=== PATIENT | male | born 1950 | race Caucasian/White ===

== ENCOUNTER 2018-08-22 07:41 | Inpatient (IN) | payer MEDICAID, OTHER ==
[~2018-08-22] VITALS: Ht 170.2 cm; Wt 67.5 kg
[2018-08-22] MEDS ORDERED: ONDANSETRON 4 MG INJ IV STA (07:59)
[2018-08-22] MEDS ORDERED: CEFTRIAXONE 1 GM/50 ML (PMX) 50 ML IVPB STA (07:59)
[2018-08-22] MEDS ORDERED: ACETAMINOPHEN 325 MG TAB PO STA (07:59)
[2018-08-22] MEDS ORDERED: SODIUM CHLORIDE 0.9% 1L BAG IV* STA (07:59)
[2018-08-22] MEDS ORDERED: MTF1000T PO (08:05)
[2018-08-22] MEDS ORDERED: ASPIRIN 81 MG TAB PO ONE (09:30)
[2018-08-22] MEDS ORDERED: ACETAMINOPHEN 325 MG TAB PO PRN ×2 (11:30→14:00)
[2018-08-22] MEDS ORDERED: ONDANSETRON 4 MG INJ IV PRN ×2 (11:30→14:00)
--- NOTE | 2018-08-22 11:30 | ERD ---
ER Documentation Chief Complaint Chief Complaint Complains of feeling Dizziy x 2 days HPI Patient is a 67-year-old male with hypertension and diabetes who presents saying "I started feeling bad". He said that it started yesterday. He had 3 episodes of vomiting last night. He felt cold. The daughter found him on the floor this morning and could not get him off the floor. He has diffuse weakness. He has no cough. He does have sore throat. He has had no treatment as of yet. There are no sick contacts at home. The patient does not know the name of his primary doctor. ROS All systems reviewed and are negative except as per history of present illness. Medications Home Meds Reported Medications Metformin* (Glucophage*) 1,000 Mg Tablet, 1000 MG PO BID, #60 TAB 08/22/18 Allergies Allergies: Coded Allergies: No Known Allergy (Unverified , 08/22/18) PMhx/Soc Medical and Surgical Hx: pt denies Medical Hx, pt denies Surgical Hx Hx Alcohol Use: No Hx Substance Use: No Hx Tobacco Use: No Smoking Status: Never smoker FmHx Family History: diabetes Physical Exam Vitals Vital Signs Date Temp Pulse Resp B/P (MAP) Pulse Ox O2 O2 Flow FiO2 Time Delivery Rate 08/22/18 99.8 104 10:50 08/22/18 102.8 08:36 08/22/18 102.8 122 08:15 08/22/18 102.5 133 20 129/84 95 07:46 (99) Physical Exam Const: Moderate distress Head: Atraumatic Eyes: Normal Conjunctiva ENT: Normal External Ears, Nose and Mouth. Neck: Full range of motion. No meningismus. Resp: Clear to auscultation bilaterally Cardio: Tachycardic rate without murmur Abd: Soft, non tender, non distended. Normal bowel sounds Skin: Pale skin Back: No midline or flank tenderness Ext: No cyanosis, or edema Neur: Awake and alert Psych: Normal Mood and Affect Result Diagram: 08/22/18 0818 08/22/1818 Results 24 hrs Laboratory Tests Test 08/22/18 08:17 08/22/18 08:18 08/22/18 08:23 08/22/18 10:05 Prothrombin Time 13.7 Sec Prothrombin Time 1.1 Ratio INR International 1.04 Normalized Ratio Activated 27.5 Sec Partial Thromboplas t Time White Blood Count 15.4 10^3/ul Red Blood Count 4.30 10^6/ul Hemoglobin 12.7 g/dl Hematocrit 37.4 % Mean Corpuscular 87.0 fl Volume Mean Corpuscular 29.5 pg Hemoglobin Mean Corpuscular 34.0 g/dl Hemoglobin Concent Red Cell 12.4 % Distribution Width Platelet Count 294 10^3/UL Mean Platelet 10.9 fl Volume Immature 0.800 % Granulocytes % Neutrophils % 84.8 % Lymphocytes % 5.5 % Monocytes % 8.7 % Eosinophils % 0.0 % Basophils % 0.2 % Nucleated Red Blood 0.0 /100WBC Cells % Immature 0.130 10^3/ul Granulocytes # Neutrophils # 13.1 10^3/ul Lymphocytes # 0.8 10^3/ul Monocytes # 1.3 10^3/ul Eosinophils # 0.0 10^3/ul Basophils # 0.0 10^3/ul Nucleated Red Blood 0.0 10^3/ul Cells # Sodium Level 138 mmol/L Potassium Level 4.3 mmol/L Chloride Level 97 mmol/L Carbon Dioxide 26 mmol/L Level Anion Gap 15 Blood Urea Nitrogen 17 mg/dl Creatinine 1.05 mg/dl Est Glomerular > 60 mL/min Filtrat Rate mL/min Glucose Level 238 mg/dl Calcium Level 9.3 mg/dl Total Bilirubin 0.2 mg/dl Direct Bilirubin 0.00 mg/dl Indirect Bilirubin 0.2 mg/dl Aspartate Amino 23 IU/L Transf (AST/SGOT) Alanine 16 IU/L Aminotransferase (A LT/SGPT) Alkaline 65 IU/L Phosphatase Troponin I 0.239 ng/ml Total Protein 8.0 g/dl Albumin 4.3 g/dl Globulin 3.70 g/dl Albumin/Globulin 1.16 Ratio POC Venous Lactate 1.4 mmol/L Urine Color YELLOW Urine Clarity CLEAR Urine pH 7.0 Urine Specific 1.015 [place] Urine Ketones 1+ mg/dL Urine Nitrite NEGATIVE mg/dL Urine Bilirubin NEGATIVE mg/dL Urine Urobilinogen 1+ mg/dL Urine Leukocyte NEGATIVE Aden/ul Esterase Urine Microscopic 3 /HPF RBC Urine Microscopic 10 /HPF WBC Urine Hemoglobin NEGATIVE mg/dL Urine Glucose 1+ mg/dL Urine Total Protein 2+ mg/dl Current Medications Medications Dose Sig/Kimberlee Start Time Status Last (Trade) Ordered Route PRN Stop Time Admin Dose Reason Admin Sodium 2,100 ml BOLUS OVER 2 08/22/18 DC 08/22/18 Chloride HOURS STAT 07:59 08/22/18 08:32 (NS) IV* 08:01 650 mg ONCE STAT 08/22/18 DC 08/22/18 Acetaminophen PO 07:59 08/22/18 08:36 (Tylenol 08:01 Tab) Ondansetron 4 mg ONCE STAT 08/22/18 DC HCl (Zofran IV 07:59 08/22/18 Inj) 08:01 Ceftriaxone 50 ml @ ONCE STAT 08/22/18 DC 08/22/18 Sodium 100 mls/hr IVPB 07:59 08/22/18 09:18 08:28 Aspirin 162 mg ONCE ONCE 08/22/18 DC 08/22/18 (Aspirin) PO 09:30 08/22/18 10:09 09:31 Ondansetron 4 mg ER BRIDGE 08/22/18 HCl (Zofran PRN IV 11:30 08/23/18 Inj) NAUSEA AND/OR 11:29 VOMITING 650 mg ER BRIDGE 08/22/18 Acetaminophen PRN PO MILD 11:30 08/23/18 (Tylenol PAIN(1-3)OR 11:29 Tab) ELEVATED TEMP Procedures/MDM EKG read by me: Rate/Rhythm: Sinus tachycardia at a rate of 110 Intervals: Normal Impression: Tachycardia without ischemia X-ray shows no pneumonia per radiology. Flu swab negative. Sepsis Documentation: Patient's infectious symptoms have not stabilized and the patient is at risk of rapid decompensation. The patient will be admitted for careful hydration, antibiotic therapy, and infectious source control. SEVERE SEPSIS CRITERIA: Infectious source: Cystitis End organ damage indicated by: Positive troponin SEPSIS MANAGEMENT Time of recognition of sepsis: 8:18 AM. Time of recognition of severe sepsis: 8:18 AM. Time of recognition of septic shock: No septic shock at this time. 3 HOUR BUNDLE Blood cultures x 2 before broad-spectrum antibiotics: Yes 30 ml/kg NS bolus completed Initial lactate normal Repeat lactate pending SEPTIC SHOCK ASSESSMENT: No lactic acid > 4.0 No persistent hypotension (SBP < 90 or 40 mmHg drop, MAP < 65) despite 30 mL/kg IV fluid bolus VOLUME REASSESSMENT FOR SEPTIC SHOCK: No septic shock at this time PERSISTENT HYPOTENSION TREATMENT: Comfort care no Central line not Required Vasopressor started not required I considered further perfusion assessment with CVP measurement, SCVO2, bedside ultrasound volume assessment, passive leg raise, trial of further fluid bolus. And proceeded with 30 ml/kg fluid bolus of NSS, broad spectrum antibiotics, and admission. The patient was also found to have a positive troponin and was given aspirin. I believe this is more related to cardiac stress from sepsis. The patient will be admitted to the Dr. Nixon from [facility]. He is unstable for transfer at this time. CRITICAL CARE Critical care time 35 minutes Emergent fluid management while maintaining close respiratory support. Provision of immediate and broad-spectrum antibiotic therapy. Simultaneous assessment for possible sources in order to direct targeted therapy. Consideration for invasive and chemical support to prevent cardiopulmonary collapse. Critical care time is independent of procedures performed. Departure Diagnosis: Primary Impression: Severe sepsis Additional Impressions: Fever Fever type: unspecified Qualified Codes: R50.9 - Fever, unspecified NSTEMI (non-ST elevated myocardial infarction) Condition: Serious GIULIA ORTIZ MD Aug 22, 2018 11:30
[2018-08-22 13:13] VITALS: Ht 170.2 cm; Wt 67.5 kg
[2018-08-22 13:14] VITALS: BP 149/81; PULSE 95; RESP 18
[2018-08-22 13:20] VITALS: PULSE 95
[2018-08-22] MEDS ORDERED: GLUCOSE GEL 15 GRAM TUBE PO PRN ×2 (14:00)
[2018-08-22] MEDS ORDERED: DEXTROSE 50% 50 ML SYRINGE IV PRN ×2 (14:00)
[2018-08-22] MEDS ORDERED: NACL 0.9% 3 ML SYG IV SCH (14:00)
[2018-08-22] MEDS ORDERED: GLUCOSE GEL 15 GRAM TUBE BUCCAL PRN (14:00)
[2018-08-22] MEDS ORDERED: DOCUSATE SODIUM 100 MG CAP PO PRN (14:00)
[2018-08-22] MEDS ORDERED: GLUCAGON 1 MG INJ IM PRN (14:00)
[2018-08-22] MEDS: SOD CHLORIDE 0.9% 1,000 ML IV SCH ×2 (14:27→23:38)
[2018-08-22] MEDS: HEPARIN 5,000 UNIT/1 ML VIAL SC SCH ×2 (14:41→21:24)
[2018-08-22 15:19] VITALS: BP 156/80; PULSE 108; RESP 20
--- NOTE | 2018-08-22 15:57 | RADRPT ---
Echocardiogram Report Patient Name: ZHAO MEYERS Gender: Male Date: 1950 Study Date: 22-Aug-2018 Intermediate Card Tender: Alia Olivo [facility] Location: [id number] Ref. Physician: LUIS FERNANDO JARVIS Quality: Adequate Procedures: Transthoracic echocardiogram with complete 2D, M-Mode, and doppler examination. Indications: Elevated troponin. 2D/M Mode Doppler Measurement Value Normal Ranges Measurement Value Normal Ranges LVIDd 2D 4.5 3.5 - 5.6 cm AV Peak Karel 1.2 m/sec LVIDs 2D 2.8 2.1 - 4.1 cm AV Peak PG 6.0 mmHg FS 2D 37.5 % LVOT Peak Karel 0.9 m/sec LVPWd 2D 1.0 0.6 - 1.1 cm LVOT Peak PG 4.0 mmHg IVSd 2D 1.1 0.6 - 1.1 cm MV E Peak Karel 0.9 m/sec IVS/LVPW 2D 1.0 MV A Peak Karel 1.1 m/sec AoR Diam 2D 3.1 2.0 - 3.7 cm MV E/A 0.8 LA/Ao 2D 1 0 - 1 MV Decel Time 99 msec EDV 2D 91.7 cm3 MV E/A 0.8 ESV 2D 22.4 cm3 TR Peak Karel 2.6 m/sec LA Dimen 2D 3.3 2.3 - 4.0 cm TR Peak PG 27.0 mmHg RVSP 35.0 mmHg RA Pressure 8.0 Findings Left Ventricle: Normal left ventricular systolic function. Normal left ventricular cavity size. Mild concentric left ventricular hypertrophy. Ejection fraction is visually estimated at 60 %. Tissue Doppler/Mitral Doppler indices are consistent with impaired relaxation (Stage I diastolic dysfunction). Right Ventricle: Normal right ventricular size. Normal right ventricular systolic function. Left Atrium: The left atrium is normal in size. Right Atrium: The right atrium is normal in size. Mitral Valve: Normal appearance of the mitral valve. Mild mitral annular calcification. Trace mitral regurgitation. Aortic Valve: Normal appearance of the aortic valve. No significant aortic stenosis or insufficiency. Tricuspid Valve: Normal appearance of the tricuspid valve. Estimated peak PA systolic pressure 35 mmHg. There is mild tricuspid regurgitation. Pulmonic Valve: Normal pulmonic valve appearance. Pericardium: Normal pericardium with no significant pericardial effusion. Aorta: Normal aortic root. IVC: Dilated IVC with respiratory collapse consistent with elevated right atrial pressure. Conclusions Normal left ventricular systolic function. Normal left ventricular cavity size. Mild concentric left ventricular hypertrophy. Ejection fraction is visually estimated at 60 %. Tissue Doppler/Mitral Doppler indices are consistent with impaired relaxation (Stage I diastolic dysfunction). Normal right ventricular size. Normal right ventricular systolic function. The left atrium is normal in size. The right atrium is normal in size. Normal appearance of the tricuspid valve. Estimated peak PA systolic pressure 35 mmHg. There is mild tricuspid regurgitation. No significant valvular stenosis or regurgitation seen of remaining visualized valves. Normal pericardium with no significant pericardial effusion. Electronically Signed By: Evan Neves 22-Aug-2018 15:57:27 -0800 Patient Name: ZHAO MEYERS Study Date: 22-Aug-2018 [id number]
[2018-08-22 16:21] VITALS: PULSE 101
[2018-08-22] MEDS: ASPIRIN 81 MG TAB PO SCH (16:52)
--- NOTE | 2018-08-22 16:58 | CONS ---
Date/Time of Note Date/Time of Note DATE: 08/22/18 TIME: 16:52 Assessment/Plan Assessment/Plan Assessment/Plan SIRS with probable sepsis Mildly elevated troponin Preserved ejection fraction Diabetes -Patient presents with symptoms of not feeling well with nausea and vomiting with likely sepsis. Troponins mildly elevated. Patient denies any chest pain, shortness of breath or palpitations. ECG with no significant ischemic abnormalities, echocardiogram with preserved ejection fraction. Would continue sepsis management. Patient started on aspirin and statin therapy at the current time. Follow serial cardiac enzymes. Result Diagram: 08/22/18 0818 08/22/18 0818 Results 24hrs Laboratory Tests Test 08/22/18 08:17 08/22/18 08:18 08/22/18 08:23 08/22/18 10:05 Prothrombin Time 13.7 Prothrombin Time Ratio 1.1 INR International 1.04 Normalized Ratio Activated 27.5 Partial Thromboplast Time White Blood Count 15.4 H Red Blood Count 4.30 L Hemoglobin 12.7 L Hematocrit 37.4 L Mean Corpuscular Volume 87.0 Mean Corpuscular 29.5 Hemoglobin Mean Corpuscular 34.0 Hemoglobin Concent Red Cell Distribution 12.4 Width Platelet Count 294 Mean Platelet Volume 10.9 H Immature Granulocytes % 0.800 H Neutrophils % 84.8 H Lymphocytes % 5.5 L Monocytes % 8.7 Eosinophils % 0.0 Basophils % 0.2 Nucleated Red Blood 0.0 Cells % Immature Granulocytes # 0.130 H Neutrophils # 13.1 H Lymphocytes # 0.8 Monocytes # 1.3 H Eosinophils # 0.0 Basophils # 0.0 Nucleated Red Blood 0.0 Cells # Sodium Level 138 Potassium Level 4.3 Chloride Level 97 Carbon Dioxide Level 26 Anion Gap 15 H Blood Urea Nitrogen 17 Creatinine 1.05 Est Glomerular Filtrat > 60 Rate mL/min Glucose Level 238 H Calcium Level 9.3 Total Bilirubin 0.2 Direct Bilirubin 0.00 Indirect Bilirubin 0.2 Aspartate Amino 23 Transf (AST/SGOT) Alanine 16 Aminotransferase (ALT/SG PT) Alkaline Phosphatase 65 Troponin I 0.239 *H Total Protein 8.0 Albumin 4.3 Globulin 3.70 H Albumin/Globulin Ratio 1.16 POC Venous Lactate 1.4 Urine Color YELLOW Urine Clarity CLEAR Urine pH 7.0 Urine Specific [place] 1.015 Urine Ketones 1+ H Urine Nitrite NEGATIVE Urine Bilirubin NEGATIVE Urine Urobilinogen 1+ H Urine Leukocyte Esterase NEGATIVE Urine Microscopic RBC 3 Urine Microscopic WBC 10 H Urine Hemoglobin NEGATIVE Urine Glucose 1+ H Urine Total Protein 2+ H Test 08/22/18 10:56 08/22/18 14:10 08/22/18 16:29 Lactic Acid Level 1.1 Creatine Kinase 188 Creatine Kinase Index 1.7 Creatinine Kinase MB 3.27 H (Mass) Troponin I 0.563 *H Bedside Glucose 167 Consultation Date/Type/Reason Admit Date/Time Aug 22, 2018 at 11:17 Type of Consult cv Reason for Consultation Elevated troponin Hx of Present Illness This is a 67-year-old male with no significant past medical history who presents with overall not feeling well with nausea and vomiting the day prior to admi ssion. No chest pain or shortness of breath. No dizziness, lightheadedness or palpitations. On routine laboratory studies, patient found to have elevated troponin and for this reason cardiology consultation was requested. Currently feeling much better. Denies any chest pain, shortness of breath or palpitations at the current time. 12 point review of systems was performed with all pertinent positives and negatives mentioned above and all else is negative Past Medical History Medical History: diabetes Medications Current Medications Sodium Chloride 1,000 ml @ 100 mls/hr Q10H IV Last administered on 08/22/18at 14:27; Admin Dose 100 MLS/HR; Start 08/22/18 at 13:31 IV Flush (NS 3 ml) 3 ml PER PROTOCOL IV ; Start 08/22/18 at 14:00 Ondansetron HCl (Zofran Inj) 4 mg Q6H PRN IV NAUSEA AND/OR VOMITING; Start 08/22/18 at 14:00 Acetaminophen (Tylenol Tab) 650 mg Q6H PRN PO PAIN LEVEL 1-3 OR FEVER; Start 08/22/18 at 14:00 Docusate Sodium (Colace) 100 mg Q12H PRN PO CONSTIPATION; Start 08/22/18 at 14:00 Famotidine (Pepcid) 20 mg Q12 PO ; Start 08/22/18 at 21:00 Heparin Sodium (Porcine) (Heparin (5000 Units/1ml)) 5,000 unit Q8 SC Last administered on 08/22/18at 14:41; Admin Dose 5,000 UNIT; Start 08/22/18 at 14:00 Ceftriaxone Sodium 50 ml @ 100 mls/hr Q24H IVPB ; Start 08/23/18 at 09:00 Diagnostic Test (Pha) (Accu-Chek) 1 ea 02 XX ; Start 08/23/18 at 02:00 Insulin Glargine (Lantus) 10 units DAILY@2100 SC ; Start 08/22/18 at 21:00 Insulin Aspart (Novolog Insulin Pen) NOVOLOG *MODERATE* ALGORITHM WITH MEALS BEDTIME SC ; Start 08/22/18 at 17:55 Miscellaneous Information 1 ea NOTE XX ; Start 08/22/18 at 14:00 Glucose (Glutose) 15 gm Q15M PRN PO DECREASED GLUCOSE; Start 08/22/18 at 14:00 Glucose (Glutose) 22.5 gm Q15M PRN PO DECREASED GLUCOSE; Start 08/22/18 at 14:00 Dextrose (D50w Syringe) 25 ml Q15M PRN IV DECREASED GLUCOSE; Start 08/22/18 at 14:00 Dextrose (D50w Syringe) 50 ml Q15M PRN IV DECREASED GLUCOSE; Start 08/22/18 at 14:00 Glucagon (Glucagen) 1 mg Q15M PRN IM DECREASED GLUCOSE; Start 08/22/18 at 14:00 Glucose (Glutose) 15 gm Q15M PRN BUCCAL DECREASED GLUCOSE; Start 08/22/18 at 14:00 Aspirin (Aspirin) 81 mg DAILY PO ; Start 08/22/18 at 17:00 Atorvastatin Calcium (Lipitor) 20 mg HS PO ; Start 08/22/18 at 21:00 Penicillin V Potassium (Penicillin V K) 500 mg Q8 PO ; Start 08/22/18 at 22:00 Allergies: Coded Allergies: No Known Allergy (Unverified , 08/22/18) Past Surgical History Past Surgical Hx: other (Ophthalmologic surgery) Family History Significant Family History: no pertinent family hx Social History Smoking Status: Never smoker Exam/Review of Systems Vital Signs Vitals Vital Signs Date Temp Pulse Resp B/P (MAP) Pulse Ox O2 O2 Flow FiO2 Time Delivery Rate 08/22/18 101 16:21 08/22/18 99.3 20 156/80 91 Room Air 15:19 (105) Exam No apparent distress, multiple family members at bedside Constitutional: alert, oriented Head: normocephalic Respiratory: other (Coarse breath sounds bilaterally, no wheezing) Cardiovascular: regular rate and rhythm, other (S1-S2) Gastrointestinal: soft, non-tender, bowel sounds Extremities: other (No significant edema) Medications Medications Current Medications Sodium Chloride 1,000 ml @ 100 mls/hr Q10H IV Last administered on 08/22/18at 14:27; Admin Dose 100 MLS/HR; Start 08/22/18 at 13:31 IV Flush (NS 3 ml) 3 ml PER PROTOCOL IV ; Start 08/22/18 at 14:00 Ondansetron HCl (Zofran Inj) 4 mg Q6H PRN IV NAUSEA AND/OR VOMITING; Start 08/22/18 at 14:00 Acetaminophen (Tylenol Tab) 650 mg Q6H PRN PO PAIN LEVEL 1-3 OR FEVER; Start 08/22/18 at 14:00 Docusate Sodium (Colace) 100 mg Q12H PRN PO CONSTIPATION; Start 08/22/18 at 14:00 Famotidine (Pepcid) 20 mg Q12 PO ; Start 08/22/18 at 21:00 Heparin Sodium (Porcine) (Heparin (5000 Units/1ml)) 5,000 unit Q8 SC Last administered on 08/22/18at 14:41; Admin Dose 5,000 UNIT; Start 08/22/18 at 14:00 Ceftriaxone Sodium 50 ml @ 100 mls/hr Q24H IVPB ; Start 08/23/18 at 09:00 Diagnostic Test (Pha) (Accu-Chek) 1 ea 02 XX ; Start 08/23/18 at 02:00 Insulin Glargine (Lantus) 10 units DAILY@2100 SC ; Start 08/22/18 at 21:00 Insulin Aspart (Novolog Insulin Pen) NOVOLOG *MODERATE* ALGORITHM WITH MEALS BEDTIME SC ; Start 08/22/18 at 17:55 Miscellaneous Information 1 ea NOTE XX ; Start 08/22/18 at 14:00 Glucose (Glutose) 15 gm Q15M PRN PO DECREASED GLUCOSE; Start 08/22/18 at 14:00 Glucose (Glutose) 22.5 gm Q15M PRN PO DECREASED GLUCOSE; Start 08/22/18 at 14:00 Dextrose (D50w Syringe) 25 ml Q15M PRN IV DECREASED GLUCOSE; Start 08/22/18 at 14:00 Dextrose (D50w Syringe) 50 ml Q15M PRN IV DECREASED GLUCOSE; Start 08/22/18 at 14:00 Glucagon (Glucagen) 1 mg Q15M PRN IM DECREASED GLUCOSE; Start 08/22/18 at 14:00 Glucose (Glutose) 15 gm Q15M PRN BUCCAL DECREASED GLUCOSE; Start 08/22/18 at 14:00 Aspirin (Aspirin) 81 mg DAILY PO ; Start 08/22/18 at 17:00 Atorvastatin Calcium (Lipitor) 20 mg HS PO ; Start 08/22/18 at 21:00 Penicillin V Potassium (Penicillin V K) 500 mg Q8 PO ; Start 08/22/18 at 22:00 Imaging Imaging ECG demonstrates sinus tachycardia at 119 bpm, QRS 94 ms, no significant ischemic ST abnormalities Evan Neves DO Aug 22, 2018 16:58
[2018-08-22] MEDS: INSULIN ASPART [NOVOLOG] 3 ML PEN SC SCH ×2 (17:07→21:00)
--- NOTE | 2018-08-22 17:15 | HP ---
Date/Time of Note Date/Time of Note DATE: 08/22/18 TIME: 17:15 Assessment/Plan VTE Prophylaxis Pharmacological prophylaxis: heparin Lines/Catheters IV C[facility]ter Type (from [facility]): [facility] Assessment/Plan Hospital Course 67 m with hx of HTN , DM, BPH s/p prostatic biopsy who presented with severe sepsis with presumed UTI as the source , strep throat is positive. He was found to have elevated troponin without CP (1) Severe sepsis, presumed UTI and positive strep throat, throat blood and urine cultures , Penicillin V for strep throat , Ceftriaxone for possible complicated UTI , (2) Strep throat, Penicillin V PO as above for 10 days (3) NSTEMI (non-ST elevated myocardial infarction), trend troponin , cardiology consultation to Dr Neves PPX: Heparin and Pepcid Problems: (1) Severe sepsis Status: Acute (2) Strep throat (3) NSTEMI (non-ST elevated myocardial infarction) Status: Acute Result Diagram: 08/22/18 0818 08/22/18 0818 Results 24hrs Laboratory Tests Test 08/22/18 08:17 08/22/18 08:18 08/22/18 08:23 08/22/18 10:05 Prothrombin Time 13.7 Prothrombin Time Ratio 1.1 INR International 1.04 Normalized Ratio Activated 27.5 Partial Thromboplast Time White Blood Count 15.4 H Red Blood Count 4.30 L Hemoglobin 12.7 L Hematocrit 37.4 L Mean Corpuscular Volume 87.0 Mean Corpuscular 29.5 Hemoglobin Mean Corpuscular 34.0 Hemoglobin Concent Red Cell Distribution 12.4 Width Platelet Count 294 Mean Platelet Volume 10.9 H Immature Granulocytes % 0.800 H Neutrophils % 84.8 H Lymphocytes % 5.5 L Monocytes % 8.7 Eosinophils % 0.0 Basophils % 0.2 Nucleated Red Blood 0.0 Cells % Immature Granulocytes # 0.130 H Neutrophils # 13.1 H Lymphocytes # 0.8 Monocytes # 1.3 H Eosinophils # 0.0 Basophils # 0.0 Nucleated Red Blood 0.0 Cells # Sodium Level 138 Potassium Level 4.3 Chloride Level 97 Carbon Dioxide Level 26 Anion Gap 15 H Blood Urea Nitrogen 17 Creatinine 1.05 Est Glomerular Filtrat > 60 Rate mL/min Glucose Level 238 H Calcium Level 9.3 Total Bilirubin 0.2 Direct Bilirubin 0.00 Indirect Bilirubin 0.2 Aspartate Amino 23 Transf (AST/SGOT) Alanine 16 Aminotransferase (ALT/SG PT) Alkaline Phosphatase 65 Troponin I 0.239 *H Total Protein 8.0 Albumin 4.3 Globulin 3.70 H Albumin/Globulin Ratio 1.16 POC Venous Lactate 1.4 Urine Color YELLOW Urine Clarity CLEAR Urine pH 7.0 Urine Specific [place] 1.015 Urine Ketones 1+ H Urine Nitrite NEGATIVE Urine Bilirubin NEGATIVE Urine Urobilinogen 1+ H Urine Leukocyte Esterase NEGATIVE Urine Microscopic RBC 3 Urine Microscopic WBC 10 H Urine Hemoglobin NEGATIVE Urine Glucose 1+ H Urine Total Protein 2+ H Test 08/22/18 10:56 08/22/18 14:10 08/22/18 16:29 Lactic Acid Level 1.1 Creatine Kinase 188 Creatine Kinase Index 1.7 Creatinine Kinase MB 3.27 H (Mass) Troponin I 0.563 *H Bedside Glucose 167 HPI/ROS Admit Date/Time Admit Date/Time Aug 22, 2018 at 11:17 Hx of Present Illness 67 m with hx of DM, BPH s/p prostatic biopsy who presented to the ED because of two days of not feeling well. The family went out for dinner last night when he was found to be very weak and not able to walk. He vomited after eating . He complains of sore throat and chills . Denies CP, SOB cough,abdominal pain, diarrhea , focal weakness or numbness. He was found to have elevated WBC fever. He was treated for urosepsis by IV ceftriaxone . Troponin was found to be elevated without CP PMH/Family/Social Past Medical History Medical History: diabetes Medications Current Medications Sodium Chloride 1,000 ml @ 100 mls/hr Q10H IV Last administered on 08/22/18at 14:27; Admin Dose 100 MLS/HR; Start 08/22/18 at 13:31 IV Flush (NS 3 ml) 3 ml PER PROTOCOL IV ; Start 08/22/18 at 14:00 Ondansetron HCl (Zofran Inj) 4 mg Q6H PRN IV NAUSEA AND/OR VOMITING; Start 08/22/18 at 14:00 Acetaminophen (Tylenol Tab) 650 mg Q6H PRN PO PAIN LEVEL 1-3 OR FEVER; Start 08/22/18 at 14:00 Docusate Sodium (Colace) 100 mg Q12H PRN PO CONSTIPATION; Start 08/22/18 at 14:00 Famotidine (Pepcid) 20 mg Q12 PO ; Start 08/22/18 at 21:00 Heparin Sodium (Porcine) (Heparin (5000 Units/1ml)) 5,000 unit Q8 SC Last administered on 08/22/18at 14:41; Admin Dose 5,000 UNIT; Start 08/22/18 at 14:00 Ceftriaxone Sodium 50 ml @ 100 mls/hr Q24H IVPB ; Start 08/23/18 at 09:00 Diagnostic Test (Pha) (Accu-Chek) 1 ea 02 XX ; Start 08/23/18 at 02:00 Insulin Glargine (Lantus) 10 units DAILY@2100 SC ; Start 08/22/18 at 21:00 Insulin Aspart (Novolog Insulin Pen) NOVOLOG *MODERATE* ALGORITHM WITH MEALS BEDTIME SC Last administered on 08/22/18at 17:07; Admin Dose 2 UNIT; Start 08/22/18 at 17:55 Miscellaneous Information 1 ea NOTE XX ; Start 08/22/18 at 14:00 Glucose (Glutose) 15 gm Q15M PRN PO DECREASED GLUCOSE; Start 08/22/18 at 14:00 Glucose (Glutose) 22.5 gm Q15M PRN PO DECREASED GLUCOSE; Start 08/22/18 at 14:00 Dextrose (D50w Syringe) 25 ml Q15M PRN IV DECREASED GLUCOSE; Start 08/22/18 at 14:00 Dextrose (D50w Syringe) 50 ml Q15M PRN IV DECREASED GLUCOSE; Start 08/22/18 at 14:00 Glucagon (Glucagen) 1 mg Q15M PRN IM DECREASED GLUCOSE; Start 08/22/18 at 14:00 Glucose (Glutose) 15 gm Q15M PRN BUCCAL DECREASED GLUCOSE; Start 08/22/18 at 14:00 Aspirin (Aspirin) 81 mg DAILY PO Last administered on 08/22/18at 16:52; Admin Dose 81 MG; Start 08/22/18 at 17:00 Atorvastatin Calcium (Lipitor) 20 mg HS PO ; Start 08/22/18 at 21:00 Penicillin V Potassium (Penicillin V K) 500 mg Q8 PO ; Start 08/22/18 at 22:00 Coded Allergies: No Known Allergy (Unverified , 08/22/18) Past Surgical History Past Surgical Hx: other (Ophthalmologic surgery) Family History Significant Family History: no pertinent family hx Social History Smoking Status: Never smoker Exam/Review of Systems Vital Signs Vitals Vital Signs Date Temp Pulse Resp B/P (MAP) Pulse Ox O2 O2 Flow FiO2 Time Delivery Rate 08/22/18 101 16:21 08/22/18 99.3 20 156/80 91 Room Air 15:19 (105) Exam Exam General: In no acute distress , laying in bed , cooperative , pleasant HEENT, EOM intact, KARISHMA bilat, mucosal membranes moist and pink , no oral lesions, tonsils are erythematous and edematous NECK : Supple , not stiffness, , no mass , no carotid bruit Core: S1, S2, NL rhythm tachycardic , no murmur, no rubs, JVD not elevated, no peripheral edema Lungs: in no respiratory distress, not using the accessory muscles of respiration, clear bilaterally with no rales, no crackles , no wheezing , normal inspiratory to expiratory ratio Abdomen, soft, not distended, normal bowel sounds, no tenderness, Extremities without : edema , cyanosis, calf tenderness, brisk capillary refill Neurological: AOx3, normal speech, CN2-12 intact, no motor or sensory deficit, normal gait and normal coordination Psychological: no evidence of depression, anxiety , denies suicidal or homicidal ideation LUIS FERNANDO JARVIS MD Aug 22, 2018 17:15
[2018-08-22 20:00] VITALS: PULSE 93
[2018-08-22 20:36] VITALS: BP 135/72; PULSE 100; RESP 18
[2018-08-22] MEDS ORDERED: ATORVASTATIN 20 MG TAB PO SCH (21:00)
[2018-08-22] MEDS: PENICILLIN V K 250 MG TAB PO SCH (21:06)
[2018-08-22] MEDS: FAMOTIDINE 20 MG TAB PO SCH (21:06)
[2018-08-22] MEDS: INSULIN GLARGINE [LANTus] (100 UNITS/ML) SYG SC SCH (21:25)
[2018-08-22] MEDS: METOPROLOL 25 MG TAB PO SCH (21:48)
[2018-08-23] VITALS (11 sets, daily range): BP systolic 121–150; BP diastolic 64–80; PULSE 69–93; RESP 16–18
[2018-08-23] MEDS: ACCU-CHEK XX SCH (01:43)
[2018-08-23] MEDS: PENICILLIN V K 250 MG TAB PO SCH ×3 (06:02→20:51)
[2018-08-23] MEDS: HEPARIN 5,000 UNIT/1 ML VIAL SC SCH ×3 (06:10→21:07)
[2018-08-23] MEDS: INSULIN ASPART [NOVOLOG] 3 ML PEN SC SCH ×4 (07:53→21:07)
[2018-08-23] MEDS: CEFTRIAXONE 1 GM/50 ML (PMX) 50 ML IVPB SCH (08:39)
[2018-08-23] MEDS: METOPROLOL 25 MG TAB PO SCH (08:40)
[2018-08-23] MEDS: FAMOTIDINE 20 MG TAB PO SCH ×2 (08:40→20:51)
[2018-08-23] MEDS: ASPIRIN 81 MG TAB PO SCH (08:40)
[2018-08-23] MEDS ORDERED: REGADENOSON 0.4 MG/5 ML SYG ONE (12:39)
--- NOTE | 2018-08-23 13:14 | CONS ---
Date/Time of Note Date/Time of Note DATE: 08/23/18 TIME: 13:12 Assessment/Plan Assessment/Plan Assessment/Plan Sepsis Mildly elevated troponin, trending down Preserved ejection fraction Diabetes -Patient continues to deny any chest pain or shortness of breath. Troponins are trending down. Patient started on aspirin, statin and beta-lisa. Plan for nuclear cardiac perfusion study Result Diagram: 08/23/18 0707 08/23/18 0707 Results 24hrs Laboratory Tests Test 08/22/18 14:10 08/22/18 16:29 08/22/18 19:40 08/22/18 21:20 Creatine Kinase 188 255 H Creatine Kinase Index 1.7 1.0 Creatinine Kinase MB 3.27 H 2.58 H (Mass) Troponin I 0.563 *H 0.734 *H Bedside Glucose 167 153 Test 08/23/18 07:07 08/23/18 07:51 08/23/18 11:30 White Blood Count 15.9 H Red Blood Count 3.74 L Hemoglobin 11.0 L Hematocrit 33.9 L Mean Corpuscular Volume 90.6 Mean Corpuscular 29.4 Hemoglobin Mean Corpuscular 32.4 Hemoglobin Concent Red Cell Distribution 13.0 Width Platelet Count 235 # Mean Platelet Volume 11.4 H Immature Granulocytes % 0.800 H Neutrophils % 80.2 H Lymphocytes % 9.3 L Monocytes % 9.3 Eosinophils % 0.2 Basophils % 0.2 Nucleated Red Blood 0.0 Cells % Immature Granulocytes # 0.120 H Neutrophils # 12.7 H Lymphocytes # 1.5 Monocytes # 1.5 H Eosinophils # 0.0 Basophils # 0.0 Nucleated Red Blood 0.0 Cells # Sodium Level 141 Potassium Level 4.3 Chloride Level 98 Carbon Dioxide Level 27 Anion Gap 16 H Blood Urea Nitrogen 12 Creatinine 0.98 Est Glomerular Filtrat > 60 Rate mL/min Glucose Level 126 # Hemoglobin A1c 7.4 H Calcium Level 8.4 Magnesium Level 1.8 Creatine Kinase 238 H Creatine Kinase Index 0.9 Creatinine Kinase MB 2.12 (Mass) Troponin I 0.691 *H Bedside Glucose 120 155 Consultation Date/Type/Reason Admit Date/Time Aug 22, 2018 at 11:17 Initial Consult Date Type of Consult cv 24 HR Interval Summary Free Text/Dictation Patient continues to deny any chest pain, shortness of breath, dizziness or palpitations. Overall feeling better Exam/Review of Systems Vital Signs Vitals Vital Signs Date Temp Pulse Resp B/P (MAP) Pulse Ox O2 O2 Flow FiO2 Time Delivery Rate 08/23/18 98.5 75 16 141/80 98 11:38 (100) 08/22/18 Room Air 15:19 Intake and Output 08/22/18 08/22/18 08/23/18 1515:00 23:00 07:00 IntakeIntake Total 850 ml OutputOutput Total 300 ml BalanceBalance 550 ml Exam No apparent distress Constitutional: alert, oriented Head: normocephalic Respiratory: other (Coarse breath sounds bilaterally, no wheezing) Cardiovascular: regular rate and rhythm, other (S1-S2 heard) Gastrointestinal: soft, non-tender, bowel sounds Extremities: other (No significant edema) Medications Medications Current Medications IV Flush (NS 3 ml) 3 ml PER PROTOCOL IV ; Start 08/22/18 at 14:00 Ondansetron HCl (Zofran Inj) 4 mg Q6H PRN IV NAUSEA AND/OR VOMITING; Start 08/22/18 at 14:00 Acetaminophen (Tylenol Tab) 650 mg Q6H PRN PO PAIN LEVEL 1-3 OR FEVER Last administered on 08/22/18at 22:49; Admin Dose 650 MG; Start 08/22/18 at 14:00 Docusate Sodium (Colace) 100 mg Q12H PRN PO CONSTIPATION; Start 08/22/18 at 14:00 Famotidine (Pepcid) 20 mg Q12 PO Last administered on 08/23/18at 08:40; Admin Dose 20 MG; Start 08/22/18 at 21:00 Heparin Sodium (Porcine) (Heparin (5000 Units/1ml)) 5,000 unit Q8 SC Last administered on 08/23/18at 06:10; Admin Dose 5,000 UNIT; Start 08/22/18 at 14:00 Ceftriaxone Sodium 50 ml @ 100 mls/hr Q24H IVPB Last administered on 08/23/18at 08:39; Admin Dose 100 MLS/HR; Start 08/23/18 at 09:00 Diagnostic Test (Pha) (Accu-Chek) 1 ea 02 XX ; Start 08/23/18 at 02:00 Insulin Glargine (Lantus) 10 units DAILY@2100 SC Last administered on 08/22/18at 21:25; Admin Dose 10 UNITS; Start 08/22/18 at 21:00 Insulin Aspart (Novolog Insulin Pen) NOVOLOG *MODERATE* ALGORITHM WITH MEALS BEDTIME SC Last administered on 08/22/18at 17:07; Admin Dose 2 UNIT; Start 08/22/18 at 17:55 Miscellaneous Information 1 ea NOTE XX ; Start 08/22/18 at 14:00 Glucose (Glutose) 15 gm Q15M PRN PO DECREASED GLUCOSE; Start 08/22/18 at 14:00 Glucose (Glutose) 22.5 gm Q15M PRN PO DECREASED GLUCOSE; Start 08/22/18 at 14:00 Dextrose (D50w Syringe) 25 ml Q15M PRN IV DECREASED GLUCOSE; Start 08/22/18 at 14:00 Dextrose (D50w Syringe) 50 ml Q15M PRN IV DECREASED GLUCOSE; Start 08/22/18 at 14:00 Glucagon (Glucagen) 1 mg Q15M PRN IM DECREASED GLUCOSE; Start 08/22/18 at 14:00 Glucose (Glutose) 15 gm Q15M PRN BUCCAL DECREASED GLUCOSE; Start 08/22/18 at 14:00 Aspirin (Aspirin) 81 mg DAILY PO Last administered on 08/23/18 08:40; Admin Dose 81 MG; Start 08/22/18 at 17:00 Atorvastatin Calcium (Lipitor) 20 mg HS PO Last administered on 08/22/18at 21:06; Admin Dose 20 MG; Start 08/22/18 at 21:00 Penicillin V Potassium (Penicillin V K) 500 mg Q8 PO Last administered on 08/23/18 06:02; Admin Dose 500 MG; Start 08/22/18 at 22:00 Metoprolol Tartrate (Lopressor) 25 mg BID PO Last administered on 08/23/18at 08:40; Admin Dose 25 MG; Start 08/22/18 at 21:30 Evan Neves DO Aug 23, 2018 13:14
[2018-08-23] MEDS: ATORVASTATIN 40 MG TAB PO SCH (20:50)
[2018-08-23] MEDS: METOPROLOL 50 MG TAB PO SCH (20:51)
[2018-08-23] MEDS: INSULIN GLARGINE [LANTus] (100 UNITS/ML) SYG SC SCH (21:07)
[2018-08-24] VITALS (11 sets, daily range): BP systolic 140–175; BP diastolic 77–85; PULSE 67–151; RESP 16–18
[2018-08-24] MEDS: ACCU-CHEK XX SCH (02:19)
[2018-08-24] MEDS: HEPARIN 5,000 UNIT/1 ML VIAL SC SCH ×3 (05:03→20:41)
[2018-08-24] MEDS: PENICILLIN V K 250 MG TAB PO SCH ×3 (05:04→20:38)
[2018-08-24] MEDS: INSULIN ASPART [NOVOLOG] 3 ML PEN SC SCH ×4 (07:38→20:37)
--- NOTE | 2018-08-24 07:41 | PN ---
DATE: 08/23/2018 SUBJECTIVE: The patient is feeling much better. No complaint of abdominal pain. No nausea or vomit ing. No complaint of chest pain prior to hospitalization or during the hospitalization. OBJECTIVE: VITAL SIGNS: Stable. He is afebrile. HEENT: Extraocular muscles are intact. Pupils are equal, reactive to light bilaterally. Sclerae ar e anicteric. Oropharynx is clear, moist. NECK: Supple. No JVD, no carotid bruits. LUNGS: Clear to auscultation bilaterally. CARDIAC: Regular rate and rhythm. No murmurs, rubs or gallops. ABDOMEN: Soft, nontender, nondistended. Normoactive bowel sounds. EXTREMITIES: No clubbing, cyanosis or edema. NEUROLOGICAL: Nonfocal. LABORATORY DATA: White blood cell count 15.9, hemoglobin 11, platelets . ASSESSMENT AND PLAN: 1. A 67-year-old male with a Streptococcal pharyngitis. 2. Rule out other underlying infections. 3. Elevated troponin. Rule out coronary ischemia. 4. Hypertension, well controlled. 5. Hyperlipidemia. 6. Type 2 diabetes. PLAN: 1. Continue penicillin and Rocephin. 2. Continue to checkup culture results. 3. Proceed with nuclear stress test. Plan of care was discussed with the patient's daughter and Dr. Neves. Dictated By: YRIS NUÑEZ/NTS Conf#: [id number] DID#: [id number] CC: LUIS FERNANDO JARVIS MD;*EndCC*
[2018-08-24] MEDS: CEFTRIAXONE 1 GM/50 ML (PMX) 50 ML IVPB SCH (08:06)
[2018-08-24] MEDS: ASPIRIN 81 MG TAB PO SCH (08:06)
[2018-08-24] MEDS: METOPROLOL 50 MG TAB PO SCH ×2 (08:06→20:37)
[2018-08-24] MEDS: FAMOTIDINE 20 MG TAB PO SCH ×2 (08:06→20:37)
[2018-08-24] MEDS ORDERED: ASPI-831 PO (11:00)
[2018-08-24] MEDS ORDERED: METO-429 PO (11:00)
[2018-08-24] MEDS ORDERED: PENI-36 PO (11:00)
[2018-08-24] MEDS ORDERED: ATOR40TA68 PO (11:00)
--- NOTE | 2018-08-24 11:59 | RADRPT ---
Vent Rate: 79 bpm RR Interval: 0 msec NC Interval: 144 msec QRS Duration: 110 msec QT Interval: 364 msec QTC Interval: 417 msec P-R-T [place]: 60 - 52 - 51 degrees Normal sinus rhythm T wave abnormality, consider anterior ischemia Abnormal ECG Electronically Signed By: Nahum Fine [id number]
--- NOTE | 2018-08-24 12:49 | DS ---
DATE OF ADMISSION: 08/22/2018 DATE OF DISCHARGE: 08/25/2018 DISCHARGE DIAGNOSES: 1. Strep pharyngitis. 2. Elevated troponin without chest pain. 3. Coronary artery disease. 4. Hypertension. 5. Hyperlipidemia. 6. Type 2 diabetes mellitus. HOSPITAL COURSE: A 67-year-old male with multiple other medical problems, presented to ER with alter ed mental status. Initially sepsis was suspected. However, blood and urine culture results were neg ative. The patient was found to have acute strep pharyngitis and started on penicillin. He was note d to have elevated troponins without any chest pain. Troponins were 0.563, 0.734, 0.691 consecutivel y. He was seen in consultation by Dr. Neves. The nuclear stress test was recommended. This showed that the type and distribution of the abnormalities most consistent with a moderate sized predominan tly non-reversible perfusion defect in the AP distal to mid anterior, distal septal, distal inferior, distal inferolateral cloud. There was mild hypokinesis of the left ventricle. Left ventricular eje ction fraction at stress was 48%. Dr. Neves recommended coronary angiography. The patient and his daughter agreed to transfer to [facility] to undergo coronary angiography. The patient is in a stable condition for transfer. Plan of care was discussed with Dr. Neves. MEDICATIONS ON DISCHARGE: 1. Lipitor 40 mg p.o. at bedtime. 2. Metoprolol 50 mg p.o. b.i.d. 3. Penicillin V 500 mg p.o. q.8h. x5 days. 4. Aspirin 81 mg daily. 5. Metformin was held. This needs to be removed following cardiac catheterization. Dictated By: YRIS ELIZABETH MD SK/NTS Conf#: [id number] DID#: [id number] CC: HO NEVES DO; LUIS FERNANDO JARVIS MD;*EndCC*
--- NOTE | 2018-08-24 13:25 | CONS ---
Date/Time of Note Date/Time of Note DATE: 08/24/18 TIME: 13:23 Assessment/Plan Assessment/Plan Assessment/Plan Sepsis Mildly elevated troponin, trending down Abnormal nuclear cardiac perfusion study 08/23/2018 Preserved ejection fraction Diabetes -As mentioned, patient with abnormal nuclear perfusion study with anterior, septal, apical perfusion defect with geo-infarct ischemia. Discussion was had with for cardiac catheterization. At the current time, patient is agreeable to proceed. Continue aspirin, beta-lisa and statin therapy, add JORGE inhibitor given elevated blood pressure. -We will arrange for cardiac catheterization Result Diagram: 08/24/18 1045 08/23/18 0707 Results 24hrs Laboratory Tests Test 08/23/18 17:11 08/23/18 20:44 08/24/18 02:16 08/24/18 07:24 Bedside Glucose 145 200 112 129 Test 08/24/18 10:45 08/24/18 11:24 White Blood Count 7.1 # Red Blood Count 3.98 L Hemoglobin 11.7 L Hematocrit 35.5 L Mean Corpuscular Volume 89.2 Mean Corpuscular 29.4 Hemoglobin Mean Corpuscular 33.0 Hemoglobin Concent Red Cell Distribution 12.5 Width Platelet Count 278 Mean Platelet Volume 10.8 H Immature Granulocytes % 0.300 Neutrophils % 67.2 Lymphocytes % 18.5 Monocytes % 12.8 H Eosinophils % 0.6 Basophils % 0.6 Nucleated Red Blood 0.0 Cells % Immature Granulocytes # 0.020 Neutrophils # 4.8 Lymphocytes # 1.3 Monocytes # 0.9 Eosinophils # 0.0 Basophils # 0.0 Nucleated Red Blood 0.0 Cells # Bedside Glucose 143 Consultation Date/Type/Reason Admit Date/Time Aug 22, 2018 at 11:17 Initial Consult Date Type of Consult cv 24 HR Interval Summary Free Text/Dictation Denies chest pain, shortness of breath or palpitations Exam/Review of Systems Vital Signs Vitals Vital Signs Date Temp Pulse Resp B/P (MAP) Pulse Ox O2 O2 Flow FiO2 Time Delivery Rate 08/24/18 75 13:10 08/24/18 98.4 16 164/84 98 11:30 (110) 08/22/18 Room Air 15:19 Intake and Output 08/23/18 08/23/18 08/24/18 1515:00 23:00 07:00 IntakeIntake Total 960 ml 350 ml BalanceBalance 960 ml 350 ml Exam No apparent distress Constitutional: alert, oriented Head: normocephalic Respiratory: clear to auscultation, normal air movement Cardiovascular: regular rate and rhythm, other (S1-S2 heard) Gastrointestinal: soft, non-tender, bowel sounds Extremities: other (No significant edema) Medications Medications Current Medications IV Flush (NS 3 ml) 3 ml PER PROTOCOL IV ; Start 08/22/18 at 14:00 Ondansetron HCl (Zofran Inj) 4 mg Q6H PRN IV NAUSEA AND/OR VOMITING; Start 08/22/18 at 14:00 Acetaminophen (Tylenol Tab) 650 mg Q6H PRN PO PAIN LEVEL 1-3 OR FEVER Last administered on 08/22/18at 22:49; Admin Dose 650 MG; Start 08/22/18 at 14:00 Docusate Sodium (Colace) 100 mg Q12H PRN PO CONSTIPATION; Start 08/22/18 at 14:00 Famotidine (Pepcid) 20 mg Q12 PO Last administered on 08/24/18at 08:06; Admin Dose 20 MG; Start 08/22/18 at 21:00 Heparin Sodium (Porcine) (Heparin (5000 Units/1ml)) 5,000 unit Q8 SC Last administered on 08/23/18at 21:07; Admin Dose 5,000 UNIT; Start 08/22/18 at 14:00 Ceftriaxone Sodium 50 ml @ 100 mls/hr Q24H IVPB Last administered on 08/24/18 08:06; Admin Dose 100 MLS/HR; Start 08/23/18 at 09:00 Diagnostic Test (Pha) (Accu-Chek) 1 ea 02 XX Last administered on 08/24/18at 02:19; Admin Dose 1 EA; Start 08/23/18 at 02:00 Insulin Glargine (Lantus) 10 units DAILY@2100 SC Last administered on 08/23/18 21:07; Admin Dose 10 UNITS; Start 08/22/18 at 21:00 Insulin Aspart (Novolog Insulin Pen) NOVOLOG *MODERATE* ALGORITHM WITH MEALS BEDTIME SC Last administered on 08/24/18at 11:30; Admin Dose 2 UNIT; Start 08/22/18 at 17:55 Miscellaneous Information 1 ea NOTE XX ; Start 08/22/18 at 14:00 Glucose (Glutose) 15 gm Q15M PRN PO DECREASED GLUCOSE; Start 08/22/18 at 14:00 Glucose (Glutose) 22.5 gm Q15M PRN PO DECREASED GLUCOSE; Start 08/22/18 at 14:00 Dextrose (D50w Syringe) 25 ml Q15M PRN IV DECREASED GLUCOSE; Start 08/22/18 at 14:00 Dextrose (D50w Syringe) 50 ml Q15M PRN IV DECREASED GLUCOSE; Start 08/22/18 at 14:00 Glucagon (Glucagen) 1 mg Q15M PRN IM DECREASED GLUCOSE; Start 08/22/18 at 14:00 Glucose (Glutose) 15 gm Q15M PRN BUCCAL DECREASED GLUCOSE; Start 08/22/18 at 14:00 Aspirin (Aspirin) 81 mg DAILY PO Last administered on 08/24/18at 08:06; Admin Dose 81 MG; Start 08/22/18 at 17:00 Penicillin V Potassium (Penicillin V K) 500 mg Q8 PO Last administered on 08/24/18at 05:04; Admin Dose 500 MG; Start 08/22/18 at 22:00 Atorvastatin Calcium (Lipitor) 40 mg HS PO Last administered on 08/23/18at 20:50; Admin Dose 40 MG; Start 08/23/18 at 21:00 Metoprolol Tartrate (Lopressor) 50 mg BID PO Last administered on 08/24/18at 08:06; Admin Dose 50 MG; Start 08/23/18 at 21:00 Evan Neves DO Aug 24, 2018 13:25
[2018-08-24] MEDS ORDERED: LISINOPRIL 5 MG TAB PO SCH (13:30)
[2018-08-24] MEDS: ATORVASTATIN 40 MG TAB PO SCH (20:37)
[2018-08-24] MEDS: INSULIN GLARGINE [LANTus] (100 UNITS/ML) SYG SC SCH (20:41)
[2018-08-25] VITALS: PULSE 66
[2018-08-25 00:16] VITALS: BP 118/57; PULSE 69; RESP 20
[2018-08-25] MEDS: ACCU-CHEK XX SCH (02:00)
[2018-08-25 04:00] VITALS: PULSE 79
[2018-08-25 04:17] VITALS: BP 181/83; PULSE 78; RESP 18
[2018-08-25] MEDS: PENICILLIN V K 250 MG TAB PO SCH (05:22)
[2018-08-25] MEDS: HEPARIN 5,000 UNIT/1 ML VIAL SC SCH (05:23)
[2018-08-25] MEDS ORDERED: hydrALAzine 20 MG INJ IV ONE (06:00)
== END 2018-08-25 06:00 | disposition short-term general hospital (02) | DRG 871 ==
LOC: E/R 07:41 → TEL 11:17
PROVIDERS: ADMIT Internal Medicine; ATTEND Internal Medicine
DX: A41.9 Sepsis, unspecified organism (principal); I21.4 Non-ST elevation (NSTEMI) myocardial infarction; N39.0 Urinary tract infection, site not specified; J02.0 Streptococcal pharyngitis; I10 Essential (primary) hypertension; E11.9 Type 2 diabetes mellitus without complications
CPT/HCPCS: 36415; 71045; 78452; 80048; 80053; 81001; 82550; 82553; 82962; 83036; 83605; 83735; 84484; 85025; 85610; 85730; 87040; 87070; 87086; 87400; 87880; 93005; 93017; 93306; 96374; 97161; A9500; A9505; J0360; J0696; J1644; J1815; J2785; J7030